=== PATIENT | female | born 1990 | race African-American/Black ===

== ENCOUNTER 2019-03-03 20:43 | Emergency (ER) | payer OTHER ==
[~2019-03-03] VITALS: Ht 167.6 cm; Wt 59.0 kg
[2019-03-03 21:41] VITALS: BP 129/78
--- NOTE | 2019-03-03 21:42 | NUR ---
Patient discharged to home in stable condition. Written and verbal after care instructions given. Patient verbalizes understanding of instruction and Rx. Pt ambulated out with a steady gait. VSS.
== END 2019-03-03 21:42 | disposition home or self-care (01) ==
LOC: ER 20:43
DX: H10.89 Other conjunctivitis (principal); B99.8 Other infectious disease

== ENCOUNTER 2019-04-11 14:15 | Emergency (ER) | payer OTHER ==
[~2019-04-11] VITALS: Ht 152.4 cm; Wt 65.8 kg
[2019-04-11 15:01] VITALS: BP 134/81
[2019-04-11] MEDS ORDERED: FLUORESCEIN SODIUM OPHTH 1 EA STRIP ONE (15:16)
[2019-04-11] MEDS ORDERED: FLUORESCEIN SODIUM OPHTH 1 EA STRIP OP ONE (15:30)
== END 2019-04-11 15:44 | disposition home or self-care (01) ==
LOC: ER 14:15
DX: R21 Rash and other nonspecific skin eruption (principal); K58.9 Irritable bowel syndrome, unspecified; Z60.2 Problems related to living alone